=== PATIENT | female | born 1945 | race Caucasian/White ===

== ENCOUNTER 2017-02-28 09:59 | Emergency (ER) | payer MEDICARE, BC ==
--- NOTE | 2017-02-28 10:59 | CT REPORT ---
HISTORY: Fall. Closed head injury. COMPARISON: 05/30/2016. TECHNIQUE: Axial non-contrast images obtained from skull vertex through foramen magnum. Dose reduction technique was utilized. FINDINGS: Stable moderate ventriculomegaly. Dilated lateral, third and fourth ventricles. Diffuse cortical atrophy. No intracranial mass. No intracranial hemorrhage. No extra-axial fluid collection. No midline shift. No evidence for acute or evolving cerebrovascular accident. No calvarial fracture. Clear paranasal sinuses and mastoid air cells. IMPRESSION: Stable ventriculomegaly. No acute intracranial abnormality. Final Electronic Signature: This report was electronically signed by Seth Cee MD, FACR on 10:57 AM. rivera /
--- NOTE | 2017-02-28 11:13 | ER PHYSICIAN DOCUMENTATION ---
Physician Documentation [facility] Name:Yue Beavers Age:71 yrs Sex:Female :1945 Arrival Date:02/28/2017 Time:09:59 Bed3 Private MD:Cady Liang ED, John Disposition: 02/28/17 11:03 Discharged to Home/Self Care. Impression: Head Contusion, Unspecified Part of Head, Diarrhea. - Condition is Good. - Discharge Instructions: Brain Concussion - CONCUSSION, No Wake Up. - Prescriptions for Zofran 4 mg Oral Tablet - take 1-2 tablet by ORAL route every 4-6 hours As needed; 10 tablet. - Medical Reconciliation form form. - Follow up: Private Physician; When: As needed; Reason: Continuance of care. - Problem is new. - Symptoms have improved. HPI: 02/28 10:00 This 71 yrs old Female presents to ER via Private Vehicle with complaints of jm Head Injury-Adult. 15:01 The patient or guardian reports injury. The complaints affect the left side of the back jm of head. Context of injury: resulted from a fall, after getting up from the toilet 1 week ago. . Onset: The symptom(s)/episode began/occurred 1 week(s) ago. Associated signs and symptoms: Loss of consciousness: This patient did not experience any loss of consciousness. Pertinent positives: confusion and slowness since. . The EMS care prior to arrival includes: none. Severity of symptoms: in the emergency department the symptoms are unchanged. Intracranial bleed risk factors: age over 60. The patient has not experienced similar symptoms in the past. The patient has not recently seen a physician. PT brought by daughter who is worried about pt's confusion following a fall 1 week ago. . Historical: - Allergies: No known drug Allergies; - Home Meds: 1. Aspirin Oral 2. Lisinopril Oral 3. Simvastatin Oral 4. pt is not sure she got them all - PMHx: osteopenia; Hypertension; - Ebola Screening: : Patient denies exposure to infectious person. Patient denies travel to an Ebola-affected area in the 21 days before illness onset. . ROS: 10:00 Constitutional: Negative for fatigue, fever. jm 10:00 Eyes: Negative for blurry vision, pain. 10:00 ENT: Negative for sinus congestion, sinus pain. 10:00 Neck: Negative for injury or acute deformity. 10:00 Abdomen/GI: Positive for vomiting, diarrhea. 10:00 Neuro: Positive for altered mental status, dizziness, Negative for headache, loss of consciousness. 10:00 All other systems are negative. manohar Exam: 10:00 Constitutional: The patient appears in no acute distress, alert, awake. 10:00 Head/face: Exam is negative for obvious evidence of injury or deformity, contusion. 10:00 Eyes: Periorbital structures: appear normal, Pupils: equal, round, and reactive to light and accomodation, Extraocular movements: intact throughout. 10:00 ENT: Mouth: 10:00 Neck: Thyroid: appears normal, Trachea: is midline with no obvious abnormalities. 10:00 Cardiovascular: Rate: normal, Rhythm: regular. 10:00 Respiratory: Respirations: normal, Breath sounds: are normal. 10:00 Abdomen/GI: Bowel sounds: normal, Palpation: abdomen is soft and non-tender. 10:00 Back: pain, is absent, CVA tenderness, is absent. 10:00 Musculoskeletal/extremity: Extremities: all appear grossly normal, with no appreciated pain with palpation, ROM: intact in all extremities. 10:00 Skin: injury, is not appreciated, no rash present. 10:00 Neuro: Mentation: is normal, Memory: is normal, Gait: is steady. 10:00 Psych: Behavior/mood is pleasant, cooperative, Affect is calm. Vital Signs: 10:43 BP 110 / 76; Pulse 78; Resp 18; Pulse Ox 94% ; Pain 0/10; st [place] Coma Score: 10:01 Eye Response: spontaneous(4). Verbal Response: oriented(5). Motor Response: obeys st commands(6). Total: 15. Trauma Score (Adult): 10:43 Eye Response: spontaneous(1); Verbal Response: oriented(1); Motor Response: obeys st commands(2); Systolic BP: > 89 mm Hg(4); Respiratory Rate: 10 to 29 per min(4); Torin Score: 15; Trauma Score: 12 MDM: 10:02 Patient medically screened. 15:16 Differential diagnosis: Contusion of Hematoma on Intracranial bleed- Concussion. Data manohar reviewed: vital signs, nurses notes, old medical records, radiologic studies, and as a result, I will discharge patient. Counseling: I had a detailed discussion with the patient and/or guardian regarding: the historical points, exam findings, and any diagnostic results supporting the discharge/admit diagnosis, radiology results, the need for outpatient follow up, with the patient's primary care provider. ED course: CT negative. Pt states she's had some diarrhea, but feels confident she can replace what she puts out with PO fluids. . 02/28 11:01 Order name: CAT SCAN; HEAD W/O CON [id number] EDMS Dispensed Medications: No medications were administered Signatures: Maria Fernanda Jones, RN RN Savage Perez MD MD jm
--- NOTE | 2017-02-28 11:13 | ER NURSING DOCUMENTATION ---
Nurse's Notes [facility] Name:Yue Beavers Age:71 yrs Sex:Female :1945 Arrival Date:02/28/2017 Time:09:59 Bed3 Private MD:Cady Liang Diagnosis:Head Contusion, Unspecified Part of Head;Diarrhea Presentation: 02/28 10:01 Presenting complaint: Patient states: pt states she has had some diarrhea. On further st questioning pt has been taking laxatives on and off and had diarrhea on and off for a few months. Daughter states: daughter is concerned because pt seems confused and forgetful. daughter is unable to tell me if this is new or not. Pt apparently had a fall in the bathroom about a week ago and hit her head. Transition of care: Home. Mechanism of Injury: resulted from a fall, from a standing position. 10:01 Method Of Arrival: Private Vehicle st 10:03 Acuity: TERE 3 st Triage Assessment: 10:41 General: Appears in no apparent distress, Behavior is cooperative. Pain: Denies pain. st EENT: Oral mucosa is dry. Neuro: Level of Consciousness is awake, alert, Oriented to person, place, time, event, has troubles ordering events. Cardiovascular: No deficits noted. Respiratory: No deficits noted. GI: No deficits noted. Reports diarrhea, nausea, vomiting, on and off. Historical: - Allergies: No known drug Allergies; - Home Meds: 1. Aspirin Oral 2. Lisinopril Oral 3. Simvastatin Oral 4. pt is not sure she got them all - PMHx: osteopenia; Hypertension; - Ebola Screening: : Patient denies exposure to infectious person. Patient denies travel to an Ebola-affected area in the 21 days before illness onset. . Screenin:43 Abuse screen: no reasons for suspicion noted. Nutritional screening: No deficits noted. st Vital Signs: 10:43 BP 110 / 76; Pulse 78; Resp 18; Pulse Ox 94% ; Pain 0/10; st [place] Coma Score: 10:01 Eye Response: spontaneous(4). Verbal Response: oriented(5). Motor Response: obeys st commands(6). Total: 15. Trauma Score (Adult): 10:43 Eye Response: spontaneous(1); Verbal Response: oriented(1); Motor Response: obeys st commands(2); Systolic BP: > 89 mm Hg(4); Respiratory Rate: 10 to 29 per min(4); Torin Score: 15; Trauma Score: 12 ED Course: 10:01 Patient arrived in ED. ds 10:01 Cady Liang DO is Private Physician. ds 10:02 Savage Valdovinos MD is Attending Physician. manohar 10:03 Maria Fernanda Jones RN is Primary Nurse. st 10:[address] 10:44 Valuables Remains with patient Patient has correct armband on for positive st identification. Placed in gown. Bed in low position. Call light in reach. Side rails up X2. 10:49 Patient moved back from CT. ms Administered Medications: No medications were administered Outcome: 11:03 Discharge ordered by . 11:12 Discharged to home ambulatory. st 11:12 Condition: good 11:12 Discharge instructions given to patient, family, Instructed on discharge instructions, follow up and referral plans. medication usage, Prescriptions given X 1. 11:12 Patient [address] the ED[address] st 03/01 09:12 Discharge F/U Call: Spoke with: patient. other: Name: pt no longer has a headache or st loose stools. pt states she is doing well today and denied having any questions or concerns. Signatures: Maria Fernanda Jones RN RN st Srot, Bonny, Reg Reg Savage Elizabeth MD MD jm Strickland, Mary ms
== END 2017-02-28 11:13 | disposition home or self-care (01) ==
LOC: ER 09:59
DX: S00.03XA Contusion of scalp, initial encounter (principal); R41.82 Altered mental status, unspecified; R42 Dizziness and giddiness; W18.39XA Other fall on same level, initial encounter; Y92.012 Bathroom of single-family (private) house as the place of occurrence of the external cause; R19.7 Diarrhea, unspecified; R11.10 Vomiting, unspecified; I10 Essential (primary) hypertension; Z79.899 Other long term (current) drug therapy; Z79.82 Long term (current) use of aspirin
CPT/HCPCS: 70450; 99284; 99285